=== PATIENT | female | born 1980 | race Caucasian/White ===

== ENCOUNTER → 2017-12-17 | Outpatient (CLI) | payer OTHER ==
[~2017-12-17] MED LIST: MULTI-DAY PLUS1 EACH PO
== END | disposition home or self-care (01) ==
LOC: CIR.AMB 13:22 → EDSTATUS 14:15 → LAB 14:17
DX: O02.1 Missed abortion (principal)

== ENCOUNTER 2018-06-06 07:12 | Outpatient (CLI) | payer OTHER | END 2018-06-06 07:42 | disposition home or self-care (01) | LOC: LAB 07:12 | DX: E03.8 Other specified hypothyroidism (principal); D63.8 Anemia in other chronic diseases classified elsewhere; E78.00 Pure hypercholesterolemia, unspecified; Z34.81 Encounter for supervision of other normal pregnancy, first trimester; N30.80 Other cystitis without hematuria ==

== ENCOUNTER → 2018-09-24 | Outpatient (CLI) | payer OTHER | END | disposition home or self-care (01) | LOC: LAB 09:52 | DX: Z34.82 Encounter for supervision of other normal pregnancy, second trimester (principal); B96.89 Other specified bacterial agents as the cause of diseases classified elsewhere ==

== ENCOUNTER → 2018-11-25 07:00 | Outpatient (CLI) | payer OTHER | END | disposition home or self-care (01) | LOC: LAB 07:00 | DX: Z34.82 Encounter for supervision of other normal pregnancy, second trimester (principal) ==

== ENCOUNTER 2018-12-08 15:28 | Inpatient (IN) | payer OTHER ==
[~2018-12-08] VITALS: Ht 165.1 cm; Wt 3.2 kg
[2018-12-30] MEDS ORDERED: PRIMACARE SOFT1 EACH PO (15:13)
== END 2019-01-12 12:59 | disposition home or self-care (01) | DRG 788 ==
LOC: SURG-SUITE 12-29 10:00 → LDR 01-09 08:11 → SURG-SUITE 01-09 10:00
PROVIDERS: ADMIT Obstetrics & Gynecology Maternal & Fetal Medicine
PROC: 4A1HXCZ Monitoring of Products of Conception, Cardiac Rate, External Approach (ICD-10-PCS; 2019-01-09)
PROC: 10D00Z1 Extraction of Products of Conception, Low, Open Approach (ICD-10-PCS; principal; 2019-01-09 11:00)
DX: O82 Encounter for cesarean delivery without indication (principal); Z3A.40 40 weeks gestation of pregnancy; Z37.0 Single live birth

== ENCOUNTER → 2018-12-15 10:33 | Outpatient (CLI) | payer OTHER | END | disposition home or self-care (01) | LOC: LAB 10:33 | DX: Z34.83 Encounter for supervision of other normal pregnancy, third trimester (principal); Z11.4 Encounter for screening for human immunodeficiency virus [HIV] ==

== ENCOUNTER 2019-01-05 12:31 | Outpatient (CLI) | payer OTHER ==
[~2019-01-05 12:31] MED LIST changes: +PRIMACARE SOFT1 EACH PO
== END 2019-01-05 13:40 | disposition home or self-care (01) ==
LOC: NST 12:31
DX: Z34.83 Encounter for supervision of other normal pregnancy, third trimester (principal)

== ENCOUNTER → 2020-12-24 07:11 | Outpatient (CLI) | payer OTHER ==
[~2020-12-24 07:11] MED LIST changes: +LEVOFLOXACIN5 ML; +METRONIDAZOLE500 MG; +SERTRALINE20 MG/1 ML; +ULTRAM50 MG
== END | disposition home or self-care (01) ==
LOC: LAB 07:11
PROVIDERS: ATTEND Ophthalmology
DX: H33.021 Retinal detachment with multiple breaks, right eye (principal); D68.8 Other specified coagulation defects

== ENCOUNTER → 2020-12-24 | Outpatient (CLI) | payer OTHER | END | disposition home or self-care (01) | LOC: NST 19:24 | PROVIDERS: ATTEND Obstetrics & Gynecology | DX: Z34.83 Encounter for supervision of other normal pregnancy, third trimester (principal) ==

== ENCOUNTER 2021-01-19 14:11 | Inpatient (IN) | payer OTHER ==
[~2021-01-19] VITALS: Ht 165.1 cm; Wt 3.6 kg
[~2021-01-19 14:11] MED LIST changes: -LEVOFLOXACIN5 ML; -METRONIDAZOLE500 MG; -SERTRALINE20 MG/1 ML; -ULTRAM50 MG
== END 2021-01-24 10:47 | disposition home or self-care (01) | DRG 787 ==
LOC: LDR 14:11 → OB/GYN 14:11 → ICU 01-20 10:47 → OB/GYN 01-22 12:14
PROVIDERS: ADMIT Obstetrics & Gynecology; ATTEND Obstetrics & Gynecology
PROC: 4A1HXFZ Monitoring of Products of Conception, Cardiac Rhythm, External Approach (ICD-10-PCS; 2021-01-19)
PROC: 10D00Z1 Extraction of Products of Conception, Low, Open Approach (ICD-10-PCS; principal; 2021-01-19 14:00)
PROC: 30233R1 Transfusion of Nonautologous Platelets into Peripheral Vein, Percutaneous Approach (ICD-10-PCS; 2021-01-20)
PROC: 30233N1 Transfusion of Nonautologous Red Blood Cells into Peripheral Vein, Percutaneous Approach (ICD-10-PCS; 2021-01-21)
DX: O45.023 Premature separation of placenta with disseminated intravascular coagulation, third trimester (principal); O99.02 Anemia complicating childbirth; D62 Acute posthemorrhagic anemia; O36.4XX0 Maternal care for intrauterine death, not applicable or unspecified; O03.6 Delayed or excessive hemorrhage following complete or unspecified spontaneous abortion; Z3A.39 39 weeks gestation of pregnancy; Z37.1 Single stillbirth; Z20.822 Contact with and (suspected) exposure to COVID-19

== ENCOUNTER 2021-02-02 12:50 | Inpatient (IN) | payer OTHER ==
[~2021-02-02] VITALS: Ht 165.1 cm; Wt 64.0 kg
[2021-02-02] MEDS ORDERED: METRONIDAZOLE500 MG (13:30)
[2021-02-02] MEDS ORDERED: SERTRALINE20 MG/1 ML (13:30)
[2021-02-02] MEDS ORDERED: ULTRAM50 MG (13:30)
[2021-02-02] MEDS ORDERED: LEVOFLOXACIN5 ML (13:31)
== END 2021-02-07 15:18 | disposition home or self-care (01) | DRG 776 ==
LOC: ER 12:50 → OB/GYN 19:00
PROVIDERS: ADMIT Obstetrics & Gynecology; ATTEND Obstetrics & Gynecology
PROC: BW2110Z Computerized Tomography (CT Scan) of Abdomen and Pelvis using Low Osmolar Contrast, Unenhanced and Enhanced (ICD-10-PCS; principal; 2021-02-02)
DX: O86.03 Infection of obstetric surgical wound, organ and space site (principal); D50.0 Iron deficiency anemia secondary to blood loss (chronic); B95.61 Methicillin susceptible Staphylococcus aureus infection as the cause of diseases classified elsewhere; D72.828 Other elevated white blood cell count; E87.6 Hypokalemia

== ENCOUNTER 2022-03-14 14:49 | Outpatient (CLI) | payer OTHER ==
[~2022-03-14 14:49] MED LIST changes: +LEVOFLOXACIN5 ML; +METRONIDAZOLE500 MG; +SERTRALINE20 MG/1 ML; +ULTRAM50 MG
== END 2022-03-14 14:52 | disposition home or self-care (01) ==
LOC: LAB 14:49
PROVIDERS: ATTEND Ophthalmology
DX: Z03.818 Encounter for observation for suspected exposure to other biological agents ruled out (principal); Z20.822 Contact with and (suspected) exposure to COVID-19; Z20.828 Contact with and (suspected) exposure to other viral communicable diseases

== ENCOUNTER 2022-03-17 15:28 | Outpatient (CLI) | payer OTHER | END 2022-03-17 15:39 | disposition home or self-care (01) | LOC: LAB 15:28 | PROVIDERS: ATTEND Obstetrics & Gynecology Maternal & Fetal Medicine | DX: Z34.82 Encounter for supervision of other normal pregnancy, second trimester (principal) ==

== ENCOUNTER → 2022-06-20 08:50 | Outpatient (CLI) | payer OTHER | END | disposition home or self-care (01) | LOC: LAB 08:50 | PROVIDERS: ATTEND Obstetrics & Gynecology | DX: Z34.83 Encounter for supervision of other normal pregnancy, third trimester (principal) ==

== ENCOUNTER 2022-07-11 06:55 | Outpatient (CLI) | payer OTHER | END 2022-07-11 07:35 | disposition home or self-care (01) | LOC: NST 06:55 | PROVIDERS: ATTEND Obstetrics & Gynecology Maternal & Fetal Medicine | DX: Z34.83 Encounter for supervision of other normal pregnancy, third trimester (principal) ==

== ENCOUNTER 2022-07-15 14:15 | Outpatient (CLI) | payer OTHER | END 2022-07-15 15:22 | disposition home or self-care (01) | LOC: NST 14:15 | PROVIDERS: ATTEND Obstetrics & Gynecology Maternal & Fetal Medicine | DX: Z34.83 Encounter for supervision of other normal pregnancy, third trimester (principal) ==

== ENCOUNTER 2022-08-04 15:09 | Inpatient (IN) | payer OTHER ==
[~2022-08-04] VITALS: Ht 165.1 cm; Wt 3.2 kg
[2022-08-12] MEDS ORDERED: COMPLETE NATAL1 EACH PO (06:50)
== END 2022-08-14 12:39 | disposition home or self-care (01) | DRG 788 ==
LOC: LDR 15:09 → OB/GYN 08-12 06:19 → O/R 08-12 06:19 → LDR 08-12 09:15 → OB/GYN 08-12 11:25 → LDR 08-12 15:11 → OB/GYN 08-13 17:00
PROVIDERS: ADMIT Obstetrics & Gynecology; ATTEND Obstetrics & Gynecology
PROC: 4A1HXCZ Monitoring of Products of Conception, Cardiac Rate, External Approach (ICD-10-PCS; 2022-08-12)
PROC: 10D00Z1 Extraction of Products of Conception, Low, Open Approach (ICD-10-PCS; principal; 2022-08-12 09:15)
DX: O34.211 Maternal care for low transverse scar from previous cesarean delivery (principal); Z3A.36 36 weeks gestation of pregnancy; Z37.0 Single live birth; Z20.822 Contact with and (suspected) exposure to COVID-19

== ENCOUNTER → 2022-08-06 12:51 | Outpatient (CLI) | payer OTHER | END | disposition home or self-care (01) | LOC: LAB 12:51 | PROVIDERS: ATTEND Obstetrics & Gynecology Gynecology | DX: O09.93 Supervision of high risk pregnancy, unspecified, third trimester (principal) ==

== ENCOUNTER → 2022-08-11 13:45 | Outpatient (CLI) | payer OTHER ==
[~2022-08-11 13:45] MED LIST changes: +COMPLETE NATAL1 EACH PO
== END | disposition home or self-care (01) ==
LOC: LAB 13:45
PROVIDERS: ATTEND Obstetrics & Gynecology Gynecology
DX: Z20.828 Contact with and (suspected) exposure to other viral communicable diseases (principal); Z20.818 Contact with and (suspected) exposure to other bacterial communicable diseases